=== PATIENT | female | born 1985 | race African-American/Black ===

== ENCOUNTER 2020-02-14 00:43 | Emergency (ER) | payer BC ==
[2020-02-14] MEDS ORDERED: Lorazepam 2 MG/ML VIAL ONE (01:05)
--- NOTE | 2020-02-14 07:57 | RAD ---
PORTABLE CHEST ONE VIEW: 02/14/2020 1:22 a.m. HISTORY: Chest pain and tachycardia. FINDINGS: The heart size is normal. The lungs are well expanded and clear. The bony thorax is unremarkable. IMPRESSION: Normal examination. POS: IPETER
--- NOTE | 2020-02-18 15:48 | EKG ---
Test Reason : Blood Pressure : / mmHG Vent. Rate : 141 BPM Atrial Rate : 141 BPM P-R Int : 126 ms QRS Dur : 078 ms QT Int : 288 ms P-R-T Axes : 069 060 -03 degrees QTc Int : 441 ms Sinus tachycardia Possible Left atrial enlargement Abnormal ECG Confirmed by RJ KATZ ([id number]), film or videotape editor ROBERT HUTCHISON ([id number] on 02/18/2020 3:48:28 PM Referred By: Confirmed By:RJ KATZ
== END 2020-02-14 02:53 | disposition home or self-care (01) ==
LOC: ERS 00:43
DX: R00.0 Tachycardia, unspecified (principal)
CPT/HCPCS: 71045; 93005; 96374; J2060